=== PATIENT | male | born 1950 ===

== ENCOUNTER → 2016-10-14 | Outpatient (CLI) | payer MEDICARE, OTHER | END | disposition disaster alternative care site (69) | LOC: LFPA 10:25 | DX: R19.7 Diarrhea, unspecified (principal) ==

== ENCOUNTER → 2016-12-24 | Outpatient (CLI) | payer MEDICARE, OTHER | END | disposition disaster alternative care site (69) | LOC: LFPA 10:28 | DX: R19.7 Diarrhea, unspecified (principal) ==